=== PATIENT | male | born 1960 | race Caucasian/White ===

== ENCOUNTER 2017-12-24 07:31 | Day surgery (SDC) | payer BC ==
[2017-12-24] MEDS ORDERED: PROPOFOL 20 ML ONE ×2 (07:34)
[2017-12-24 07:49] VITALS: BMI 31.3
[2017-12-24] MEDS ORDERED: LIDOCAINE HCL/PF 2% SDV 5ML VIAL ONE (08:07)
[2017-12-24 09:12] VITALS: TEMP 98.2
[2017-12-24 09:27] VITALS: BP 110/64; PULSE 74
== END 2017-12-24 09:29 | disposition home or self-care (01) ==
LOC: FASU-ENDO 07:31
PROVIDERS: ATTEND Internal Medicine Gastroenterology
PROC: 0DJD8ZZ Inspection of Lower Intestinal Tract, Via Natural or Artificial Opening Endoscopic (ICD-10-PCS; principal; 2017-12-24 08:45)
DX: Z86.010 Personal history of colon polyps (principal); K57.30 Diverticulosis of large intestine without perforation or abscess without bleeding